=== PATIENT | male | born 1980 | race Caucasian/White ===

== ENCOUNTER 2021-06-12 01:37 | Outpatient (CLI) | payer OTHER, SELFPAY ==
--- OUTSIDE RECORDS SUMMARY | 2021-06-12 01:39 | XMS_ITS | Encounter Summary ---
:1980 Author Care Team Providers Name Role Phone Jolanta Arriaza NP Primary Care Provider [phone] Reason for Visit None recorded. Assessment and Plan 1. Snoring Arben has symptoms of snoring and nocturia with a Wadsworth score of 2/3 indicating a high likelihood of SCOOBY. I discussed the pathophysiology of obstructive sleep apnea and the potential consequ ences of untreated SCOOBY including how it relates to his symptoms and comorbidities. I ordered a polysomnogram and discussed what will take place the night of the sleep study. HST also covered. He is advi sed that Ambien may be offered the night of the study and if taken he will need to not drive for at least eight hours after taking or longer if for any residual drowsiness. Also will need to use caution when getting up at night after taking A mbien. I will see him back to review the results as soon as they are available. Drowsy driving precautions were reviewed. I provided greater than 40 minutes in e care of this patient, more than half the time was spent in [id number] counseling. ? sleep study, baseline diag nostic polysomnogram* Discussion Note: None recorded.Patient educational handouts: No information available. Plan of Care Reminders Provider Appointments Cpe 40 08/28/2021 Jolanta méndez NP 1:20PM ? Office 30 11/14/2021 Louie Henderson 1:30PM [employer]LECTRICIAN UNDERGROUND Lab None ? ? recorded. Referral None ? ? recorded. Procedures None ? ? recorded. Surgeries None ? ? recorded. Imaging None ? ? recorded. Medications No Medications Reported Medications Administered None recorded. Vitals Height Weight BMI Blood Pressure 5 ft 8 in 233.3 lbs 35.5 kg/m2 141/89 mm[Hg] Results Lab Results None recorded. Allergies Code Code System Name Reaction Severity Onset Animal Dander ? ? ? Notes: seasonal Problems Name Status Onset Date Source ? Hyperlipidemia Active ? History Eustachian Tube Disorder Active ? History Mild Intermittent Asthma Active ? History Snoring Active ? History Elevated Blood-pressure Reading without Active ? History Diagnosis of Hypertension Strain of Muscle And/or Tendon of Lower Leg Active ? History Complication of Procedure Active ? Histor y Procedures Date Name Performed by ? 07/12/2015 Eye Surgery Information not brad schneider Notes: Lasik surgery bilateral eyes Vaccine List Vaccine Type influenza, seasonal, injectable 07/12/1998 Td (adult), adsorbed 07/12/2003 Tdap 09/27/2013?0.5 mL Social History Tobacco Smoking Status Never Smoker Are you currently employed? Y Are you blind or do you have N Notes: l asik and few difficulty seeing? years ago What is your code status? 0 How much tobacco do you chew? none What was the date of your most 08/26/2020 recent tobacco screening? Do you or have you ever used Never used electronic e-cigarettes or vape? cigarettes What is your exercise level? Occasional Live alone or with others? with others Notes: wif e and step children What is your level of alcohol Moderate Notes: 2-3 daily consumption? Which of your hands is Right dominant? Animal exposure? Y Do you have any pets? Y Notes: dog Do you or have you ever used Never used smokeless tobacco smokeless tobacco? Language Difficulties No Are you deaf or do you have Y Notes: L side hearing serious difficulty hearing? aid Are you passively exposed to N smoke? Hard of hearing or deaf in one Y Notes: Left ear slight or both ears? hearing loss What is your level of caffeine Moderate Notes: 2 cups of coffee consumption? a day Are there any guns present in Y your home? 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 ? Past Encounters 04/21/2021 Snoring Dayna Henderson [employer]: [address] [place] [address], Ph. History of Present Illness Note: Arben Ocampo is seen in consultation at the request of Cristobal Messer MD for evaluation of snoring.<div>
</div><div>Arben has a medical history to include HLD, mild intermittent asthma, and snoring.</div><div>Dr Messer reportedly said there was no surgical intervention he recommend for snoring because the tongue was the problem. He says he tried a mouth piece in the past that pulled his jaw forward and this helped the snoring but after a couple of nightsit hurt his teeth. </div><div>
</div><div>{{Arben# Patient}} feels{{his * her}} biggest problem with sleep is {{snoring * waking up a lot not feeling rested}}. {{He * She}} typically goes to bed at {{8:30# 9}}pm. It takes {{5*}} minutes to fall asleep. {{He * She}} wakes up {{1-2# 1 2 3}} times a night to use the {{unknown reason pain bathroom*}} and it takes {{a few# }} minutes to get back to sleep. {{He * She }} gets up at {{5 * 6 7 8}}am to start {{his * her}} day. {{He * She}} does not take naps. {{He * She}} has no disturbances to {{his * her}} sleep. {{He * She}} has never had a sleep study. {{He * She}} sleeps {{alone with someone*}} in a bed.

SLEEP QUALITY: Feels quality of sleep most nights is {{good okay * poor}}.

DAYTIME ALERTNESS: Reports level of alertness most days to be {{alert * low energy sleepy very sleepy}}.

PSYCH SYMPTOMS: {{Has Has not*}} noted worsening memory {{and or*}} concentration. {{Does have Denies current problemswith *}} irritability, depression, {{and or*}} anxiety. {{Has Has not*}} noted difficulty with calculations.

INSOMNIA SYMPTOMS: {{Does have Does not have*}} an active mind at night when trying to sleep. {{Does have Does not have*}} stressful thoughts interfering with sleep. {{Does Does not*}} watch the clock throughout the night. {{Does Does not*}} worry about getting agood night's sleep.

BREATHING SYMPTOMS: {{Does have * Does not have}} snoring. {{Does have Does not have*}} witnessed apnea. {{Does have Does not have*}} nocturnal choking/gasping/dyspnea.{{Does have Does not have*}} mouth breathing. {{Does have * Does not have}} nasal congestion at night.

MOVEMENT SYMPTOMS: {{Does have Does not have*}} tossing & turning. {{Does have Does not have*}} messy sheets in the morning. {{Does have Does not have*}} leg or arm jerks, kicks or twitches in sleep or prior to falling asleep. {{Does Does not*}} have an aching, restless or crawling feeling in legs at night. {{Does Does not*}} have a hard time keeping legs still when trying to sleep. {{Does Does not*}} have muscle cramps or Jarrod horses. {{Does Does not*}} have sleep walking or talking.

DREAM SYMPTOMS: {{Does have Does not have*}} nightmares often that affect ability to sleep. {{Does have Does not have*}} dreams of suffocating/drowning. {{Does Does not*}} dream shortly after falling asleep. {{Does Does not*}} see dreams in the room even when awake.{{Does Does not*}} see or hear things in the room when falling asleep that aren't really there. {{Does Does not*}} see things in the road when driving that aren't really there. {{Has Has not*}} had someone see then act our their dreams. {{Has Has not*}} accidentally injured themselves while sleeping due to own movements/behaviors.

CATAPLEXY SYMPTOMS: {{Does have Does not have*}} feel limp, lose strength, or fall asleep when very angry, surprised or laughing. {{Does have Does not have*}} leg, arm or face weaknesswhen upset. {{Has Has not*}} had episodes of being unable to move when waking up which is often frightening.

DRIVING: {{Has Has not*}} fallen asleep or nearly fallen asleep driving. {{Has had Has not had*}} an accident related to drowsy driving or not paying attention. {{Does Does not*}} forget the last few miles or minutes while driving. {{Has Has not*}} driven out of liz and crossed center line or gone onto shoulder when driving. {{Has Has not*}} had a passenger tell them they look sleepy when driving.

ESS today 09/04
Wadsworth QuestionnaireScore 2/</div>Review of Systems: ROS as noted in the HPI Review of Systems ? Notes: <div>Nocturia 1/night, joint pain (shoulders, knees).</div><div>
</div& gt;He denies symptoms of night sweats, heartburn, and morning headaches. Physical Exam ? Notes: General: A&O, well groomed, answers questions appropriately, {{over weight * obese morbidly obese nor mal weight thin}}.
HEAD: normocephalic & atraumatic, {{ retrognathia and overjet# normal appearing chin retrognathia}}.
EYES: no n icteric.
NOSE: open nasal passages, septum midline, no polyps or masses .
THROAT/MOUTH: moist mucous membranes, modified mallampati score {{ 1 2 3 * 4}}, tonsils without hypertrophy. Lateral wall narrowing grade {{1 2 * 3}}. Tongue scalloping {{is * is not}} noted.
NECK: supple without palpable lymph nodes.
LUNGS: CTA all marroquin. Good air movement.<b r>CARDIO: RRR without murmur, gallop or thrill.
ABDOMEN: soft and non te nder with positive bowel sounds.
MS: Good ROM of all extremities. No cyano sis, clubbing or edema.
NEURO: A&O. Normal gait.
PSYCH: Normal mood and affect.
CUTANEOUS: no overt lesions or rashes
--- OUTSIDE RECORDS SUMMARY | 2021-06-12 01:39 | XMS_ITS ---
:1980 Author Care Team Providers Name Role Phone JOLANTA CABRERA CLIENT FINANCE ANALYST Primary Care Provider [phone] Allergies Code Code System Name Reaction Severity Status Onset Animal ? ? Active ? Dander Notes: seasonal Medications Name Status Start Date Stop Date ? ? Dilaudid 2 mg tablet Completed 10/12/2014 02/20/2015 1-2 Tablet: Every 4 hours as needed Percocet 5 mg-325 mg tablet Completed 10/10/201402/09 1-2 Tablet: every six hours as needed Problems Name Status Onset Date Source ? Hyperlipidemia Active ? History Eustachian Tube Disorder Active ? History Mild Intermittent Asthma Active ? History Palpitations Unknown ? History Snoring Active ? History Elevated Blood-pressure Reading without Active ? History Diagnosis of Hypertension Strain of Muscle And/or Tendon of Lower Leg Active ? History Complication of Procedure Active ? Histor y Procedure by Method Unknown ? History Pain of Left Elbow Joint Unknown ? History Procedures Date Name Performed by ? 07/12/2015 Eye Surgery Information not bard schneider Notes: Lasik surgery bilateral eyes Results Lab Results None recorded. Past Encounters 04/21/2021 Snoring Dayna Henderson, CLIENT FINANCE ANALYST: [address] [place] [address], Ph. 08/26/2020 Adult Health Examination; Elevated Blood -pressure Reading without Diagnosis of Hypertension; Hyperlipidemia; Mild Intermittent Asthma; Snoring; Administration of Influenza Vaccine Jolanta Cabrera CLIENT FINANCE ANALYST: [address] [place] [address] [place] [address], Ph. Social History Tobacco Smoking Status Never Smoker Vaccine List Vaccine Type influenza, seasonal, injectable 07/12/1998 Td (adult), adsorbed 07/12/2003 Tdap 09/27/2013?0.5 mL Plan of Care Reminders Provider Appointments None ? ? recorded. Lab None ? ? recorded. Referral None ? ? recorded. Procedures None ? ? recorded. Surgeries None ? ? recorded. Imaging None ? ? recorded. Vitals 04/21/2021 09:30AM New Patient 44 Height Weight BMI Blood Pressure 172.72 cm 105.82 kg 35.5 kg/m2 141/89 mm[Hg] 08/26/2020 03:20PM CPE 40 Height Weight BMI Blood Pressure 172.72 cm 105.4 kg 35.3 kg/m2 130/72 mm[Hg] 08/22/2019 04:00PM CPE 40 Height Weight BMI Blood Pressure 172.72 cm 108.95 kg 36.5 kg/m2 128/76 mm[Hg] 05/22/2019 03:40PM Acute 20 Weight Blood Pressure 108.44 kg 128/70 mm[Hg] 10/22/2016 Weight Blood Pressure 112.22 kg 146/82 mm[Hg] 04/17/2016 Weight Blood Pressure 109.81 kg 126/70 mm[Hg] 03/20/2016 Height Weight Blood Pressure 175.26 cm 110.5 kg 128/76 mm[Hg] 06/18/2015 Height Weight Blood Pressure 175.26 cm 114.62 kg 132/86 mm[Hg] 02/20/2015 Weight Blood Pressure 114.62 kg 126/80 mm[Hg] 02/14/2015 Height Weight Blood Pressure 175.26 cm 104.33 kg 137/70 mm[Hg] 01/04/2015 Height Weight Blood Pressure 175.26 cm 104.33 kg 138/82 mm[Hg] 12/20/2014 Height Weight Blood Pressure 175.26 cm 99.79 kg 138/73 mm[Hg] 11/21/2014 Height Weight Blood Pressure 175.26 cm 99.79 kg 140/82 mm[Hg] 11/02/2014 Height Weight Blood Pressure 175.26 cm 99.79 kg 142/78 mm[Hg] 10/19/2014 Height Weight 175.26 cm 99.79 kg 11/29/2013 Weight Blood Pressure 102.83 kg 124/90 mm[Hg] 09/27/2013 Height Weight Blood Pressure 172.09 cm 103.42 kg 132/90 mm[Hg] 05/25/2012 Height Weight Blood Pressure 173.99 cm 107.5 kg (1) 141/87 mm[Hg] (2) 139/88 mm[Hg] 04/03/2010 Height Weight Blood Pressure 170.82 cm 102.06 kg 134/84 mm[Hg]
--- NOTE | 2021-06-12 08:00 | DI.MRI_ITS ---
Exam(s) MR IAC BRAIN WO/W EXAM: MR IAC BRAIN WO/W CLINICAL HISTORY: left sided symptoms,sn hearing loss,lt tinnitus,vertigo,h90.42 TECHNIQUE: Multiplanar multisequence MRI of the brain was performed. Both noninfused and contrast i nfused sequences were performed. Additional are IAC protocol sequences were performed. IV Contrast injected was 20 cc Dotarem. COMPARISON: No exams were available for comparison FINDINGS: CEREBRAL PARENCHYMA: No evidence of intracranial hemorrhage, mass effect nor shift of midline structu re. No extraaxial fluid collections. Ventricles are not enlarged nor shifted. There is no significant focal signal abnormality in the cerebellar hemispheres nor within the latesha, m idbrain, and thalami. There is no abnormal signal abnormality in the periventricular white matter. There are no ring enhancing lesions in the brain. There is no abnormal meningeal enhancement. INTERNAL AUDITORY CANALS: There is no evidence of mass in the cerebellopontine angles and there is no evidence of intra canalicular acoustic neuroma. Seventh and 8th cranial nerves appear unremarkable within the ICAs. Trigeminal (5th) cranial nerves also appear unremarkable as they head 4 2 Meckel's caves PITUITARY GLAND: No mass nor parasellar abnormality. No obvious abnormality in the cavernous sinuses. Two 2 tear gland appears confined to the floor of the sella consistent with element of empty sella s yndrome. FLOW VOIDS: The expected flow void are noted. No evidence of obvious aneurysm nor obvious vascular ma lformation. No evidence of dural venous sinus thrombosis PARANASAL SINUSES: The visualized paranasal sinuses appear unremarkable. ORBITS: No obvious abnormal findings. IMPRESSION: 1. No significant acute intracranial findings on this MRI scan of the brain. No ring enhancing lesio ns. No abnormal meningeal enhancement 2. No abnormal findings in the cerebellopontine angles nor evidence of intra canalicular acoustic clinton anu-schwannoma. 3. Incidentally noted is an element of empty sella syndrome. The pituitary gland appears somewhat c onfined to the inferior aspect-floor of the sella turcica. DATA REPOSITORY:
[2021-06-12] MEDS: Gadoterate meglumine 20 ML VIAL IVP (14:14)
[2021-06-12] MEDS: Normal Saline Flush 10 ML SYR IVP (14:14)
== END 2021-06-12 01:57 ==
PROVIDERS: PCP Registered Nurse; Visit Provider Otolaryngology
DX: H90.42 Sensorineural hearing loss, unilateral, left ear, with unrestricted hearing on the contralateral side (principal); H93.12 Tinnitus, left ear; R42 Dizziness and giddiness
CPT/HCPCS: 70553